=== PATIENT | female | born 1975 | race Hispanic/Latino ===

== ENCOUNTER 2018-01-08 23:47 | Emergency (ER) | payer SELFPAY ==
[2018-01-08 23:55] VITALS: BP 142/89
[2018-01-09 01:20] LABS: Basophils % (Auto) 0.2 % (0.0-1.8); Eosinophils # (Auto) 0.3 K/mm3 (0.0-0.4); Hematocrit 38.5 % (30.3-42.9); Hemoglobin 12.6 gm/dl (10.1-14.3); Lymphocytes # (Auto) 2.5 K/mm3 (1.2-5.4); Mean Corpuscular HGB Conc 33 % (30-34); Mean Corpuscular Hemoglobin 29 pg (28-32); Mean Corpuscular Volume 89 fl (79-97); Monocytes # (Auto) 0.6 K/mm3 (0.0-0.8); Monocytes % (Auto) 5.8 % (0.0-7.3); Platelet Count 239 K/mm3 (140-440); Red Blood Count 4.33 M/mm3 (3.65-5.03); Red Cell Distribution Width 14.5 % (13.2-15.2)
[2018-01-09 01:31] LABS: BUN/Creatinine Ratio 15; Blood Urea Nitrogen 9 mg/dL (7-17); Calcium 8.6 mg/dL (8.4-10.2); Hemolysis Index 4
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
== END 2018-01-09 05:15 | disposition home or self-care (01) ==
LOC: ED 23:47
DX: J01.90 Acute sinusitis, unspecified (principal); F17.200 Nicotine dependence, unspecified, uncomplicated
CPT/HCPCS: 36415; 80048; 85025; 99283

== ENCOUNTER 2020-01-15 23:52 | Emergency (ER) | payer OTHER ==
[2020-01-16 00:01] VITALS: BP 123/70
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
[2020-01-16] MEDS ORDERED: IBUPROFEN 600 MG TAB PO ONE (01:42)
[2020-01-16] MEDS ORDERED: AMOXICILLIN/K CLAV 875/125MG TAB PO ONE (01:42)
[2020-01-16] MEDS ORDERED: ACETAMINOPHEN 500 MG TAB PO ONE (01:42)
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
[2020-01-16] MEDS ORDERED: PROMETHAZINE 25 MG TAB PO ONE (01:52)
== END 2020-01-16 02:05 | disposition home or self-care (01) ==
LOC: ED 23:52
DX: S76.011A Strain of muscle, fascia and tendon of right hip, initial encounter (principal); K05.10 Chronic gingivitis, plaque induced; K04.7 Periapical abscess without sinus; F17.200 Nicotine dependence, unspecified, uncomplicated; Z98.890 Other specified postprocedural states; Z79.899 Other long term (current) drug therapy; V49.49XA Driver injured in collision with other motor vehicles in traffic accident, initial encounter; Y92.410 Unspecified street and highway as the place of occurrence of the external cause; Y93.89 Activity, other specified; Y99.8 Other external cause status
CPT/HCPCS: 73502; 99284; Q0169